=== PATIENT | male | born 1975 | race Caucasian/White ===

== ENCOUNTER 2019-04-05 08:07 | Day surgery (SDC) | payer BC ==
[~2019-04-05] VITALS: Ht 172.7 cm; Wt 68.0 kg
[2019-04-05] VITALS (14 sets, daily range): BP systolic 116–157; BP diastolic 76–96; PULSE 50–72; TEMP 97.9–98.2
[2019-04-05 08:46] LABS: HEMATOCRIT 43.8 % (42.0-52.0); HEMOGLOBIN 14.4 g/dl (13.5-18.0); MEAN CELL VOLUME 95 fl (80.0-100.0); MEAN CORPUSCULAR HEMOGLOBIN 31 pg (27.0-31.0); MEAN CORPUSCULAR HGB CONC 33 g/dl (33.0-37.0); MEAN PLATELET VOLUME 9.9 fl (7.4-10.4); PLATELET COUNT 301 K/mm3 (130-400); RED BLOOD COUNT 4.61 M/mm3 (4.20-5.60); REDCELL DISTRIBUTION WIDTH-CV 13.4 % (11.5-14.5)
[2019-04-05 08:53] LABS: INR 0.8 (0.8-3.0); PROTHROMBIN TIME 9.7 SECONDS (9.7-12.8)
[2019-04-05 08:56] LABS: CREATININE, serum 1.12 (0.66-1.25)
--- NOTE | 2019-04-05 10:15 | NUR ---
ALL MEDICATIONS GIVEN VORB WITH MD. SEE MERGE FOR ALL MEDICATION ADMIN TIMES. SEE MERGE FOR ALL RASS ASSESSMENTS DURING AND POST PROCEDURE.
--- NOTE | 2019-04-05 11:10 | NUR ---
Bedside report given to ABDIRASHID Contreras. Right groin site clean, dry, and intact. No ooze or hematoma present. Pedal pulses present, +1. Discussed strict bedrest and patient educated on importance of keeping leg straight, head down on pillow. Bed in locked and lowest position, call light within reach.
--- NOTE | 2019-04-05 11:15 | NUR ---
Pt returned to EU 12 per bed s/p angiogram. Pt resting well.
--- NOTE | 2019-04-05 14:00 | NUR ---
Pt has voided and holly PO intake s n/v.
--- NOTE | 2019-04-05 17:30 | NUR ---
Pt has ambulated and PIV removed with catheter intact.
--- NOTE | 2019-04-05 17:46 | NUR ---
Pt discharged per w/c by nurse with .
== END 2019-04-05 17:47 | disposition home or self-care (01) ==
LOC: COL.CAR 08:07
PROVIDERS: Plastic Surgery
DX: R23.0 Cyanosis (principal); R20.0 Anesthesia of skin; R20.8 Other disturbances of skin sensation; F17.210 Nicotine dependence, cigarettes, uncomplicated
CPT/HCPCS: C1894; J1644; J2250; J3010; J7120; Q9967